=== PATIENT | female | born 1975 | race African-American/Black ===

== ENCOUNTER 2018-09-22 13:15 | Inpatient (IN) | payer MEDICARE ==
[~2018-09-22] VITALS: Ht 165.1 cm; Wt 70.9 kg
[2018-09-22 19:00] VITALS: BP 113/62
[2018-09-22 19:52] VITALS: BP 101/46; BMI 25.9
[2018-09-22 20:00] VITALS: BP 122/79
[2018-09-22 21:00] VITALS: BP 102/47
[2018-09-22 22:00] VITALS: BP 73/31
[2018-09-22 23:00] VITALS: BP 125/91
[2018-09-23 00:55] LABS: HEMATOCRIT 28.6 % (36.0-48.0); HEMOGLOBIN 8.8 g/dL (12-16); MCHC 30.8 g/dL (31.0-37.0); MCV 87.7 fL (80.0-100.0); PLATELET COUNT 139 10x3/uL (130-400); RBC 3.26 10x6/uL (4.00-5.40); RDW 19.7 % (11.5-14.5); WBC 35.4 10x3/uL (4.8-10.8)
[2018-09-23 01:04] LABS: ALBUMIN 1.4 g/dL (3.4-5.0); ANION GAP 34.7 mmol/L (8-16); BILIRUBIN - TOTAL 3.07 mg/dL (0.2-1.3); CALCIUM 10.2 mg/dL (8.5-10.1); CARBON DIOXIDE 11.4 mmol/L (21.0-32.0); CREATININE - SERUM 2.7 mg/dL (0.6-1.3); MAGNESIUM - SERUM 2.4 mg/dL (1.8-2.4); PHOSPHOROUS 7.3 mg/dL (2.5-4.9); PROTEIN - SERUM 6.5 g/dL (6.4-8.2)
[2018-09-23 01:05] LABS: POTASSIUM - SERUM 7.1 mmol/L (3.5-5.1)
[2018-09-23 01:25] LABS: LYMPHOCYTES 35 % (15-50); MONOCYTES 3 % (2-11); NEUTROPHILS 54 % (40-80); PLATELET ESTIMATE NORMAL; PLATELET MORPHOLOGY GIANT PLTS PRESENT
[2018-09-23 07:26] VITALS: Ht 165.1 cm; Wt 70.9 kg
--- NOTE | 2018-09-23 14:57 | MORECARE ---
CASE MANAGEMENT DISCHARGE SUMMARY PATIENT: JORGE MARIE UNIT: [id number] ADM DATE: 09/22/18 AGE: 43 : 77 SEX: F ROOM/BED: D.2309 AUTHOR: WES LEY PHYSICIAN: REFERRING PHYSICIAN: TARI ROJAS MD DATE OF SERVICE: 09/23/18 Discharge Plan [facility] Name[facility] [facility] 1975 Planned Disposition: Anticipated Discharge Date: Discharge Date: 09/23/2018 Expected LOS: Initial Reviewer: [id number] Initial Review Date: 09/22/2018 Generated: 09/23/18 3:57 pm Patient Name: JORGE MARIE Page [id number] at [id number] All edits/amendments must be made on the electronic document DICTATION DATE: 09/23/186 [facility] DIRECTOR: PRANEETH 09/23/18 1456 RPT#: [id number] DC DATE:09/23/18 STATUS: DIS IN [facility] [address] [place] [address] END OF REPORT
== END 2018-09-23 05:03 | DRG 871 ==
LOC: D.ICU 13:15
PROVIDERS: ADMIT Internal Medicine Nephrology; ATTEND Internal Medicine Nephrology
PROC: 0BH17EZ Insertion of Endotracheal Airway into Trachea, Via Natural or Artificial Opening (ICD-10-PCS; principal; 2018-09-23)
DX: A41.02 Sepsis due to Methicillin resistant Staphylococcus aureus (principal); G92 Toxic encephalopathy; N18.6 End stage renal disease; R65.21 Severe sepsis with septic shock; E43 Unspecified severe protein-calorie malnutrition; J96.90 Respiratory failure, unspecified, unspecified whether with hypoxia or hypercapnia; I50.33 Acute on chronic diastolic (congestive) heart failure; I13.2 Hypertensive heart and chronic kidney disease with heart failure and with stage 5 chronic kidney disease, or end stage renal disease; Z68.1 Body mass index [BMI] 19.9 or less, adult; L02.811 Cutaneous abscess of head [any part, except face]; E11.22 Type 2 diabetes mellitus with diabetic chronic kidney disease; E11.65 Type 2 diabetes mellitus with hyperglycemia; Z99.2 Dependence on renal dialysis; Z91.15 Patient's noncompliance with renal dialysis; L89.619 Pressure ulcer of right heel, unspecified stage; D50.9 Iron deficiency anemia, unspecified; I46.9 Cardiac arrest, cause unspecified